=== PATIENT | male | born 1960 | race Caucasian/White ===

== ENCOUNTER 2017-01-14 22:03 | Emergency (ER) | payer OTHER ==
[~2017-01-14] VITALS: Ht 172.7 cm; Wt 82.6 kg
--- NOTE | 2017-01-14 22:56 | ED ANKLE/FOOT INJURY COMPLAINT ---
History of Present Illness General Chief Complaint: Foot or Ankle Injury Stated Complaint: PT HAS PAIN IN THE LT ANKLE Source: patient, family Exam Limitations: no limitations Vital Signs & Intake/Output Vital Signs & Intake/Output Vital Signs Date Time Temp Pulse Resp B/P B/P Pulse O2 O2 Flow FiO2 Mean Ox Delivery Rate 01/14 2210 98.1 70 18 136/79 97 Room Air Allergies Coded Allergies: No Known Allergies (01/14/17) Reconcile Medications Diclofenac Sodium 75 MG TABLET.DR 1 TAB PO BID PRN pain/inflammation Tramadol HCl 50 MG TABLET 1-2 TAB PO Q6 PRN pain may cause drowsiness Triage Note: PT REPORTS LEFT ANKLE PAIN THAT BEGAN SUDDENTLY WHILE AT [employer]ORE. DENIED RECENT TRAUMA HOWEVER DID REPORT TO HAVE FRACTURED THIS ANKLE 40 YEARS AGO. Triage Nurses Notes Reviewed? yes HPI: Patient is a 56-year-old male presents complaining of sudden onset of left ankle pain. Patient was at the grocery store when he had sudden onset of pain. Pain is a sharp and at times dull pain is currently severe. Pain worsens with attempting weightbearing. Patient reports that there is no specific injury, twisting, fall preceding the pain. Mild swelling at this time, swelling was more pronounced prior to arrival. Patient has had numerous tick bites previously. Patient denies rash, fevers, numbness, other joint pain. Past History Travel History Traveled to [place] past 21 day No Medical History Any Pertinent Medical History? see below for history Cardiovascular: hypertension Tetanus Vaccine: Surgical History Surgical History: multiple eye surgeries Psychosocial History What is your primary language Togolese Tobacco Use: Never used Family History Hx Contributory? No Review of Systems Review of Systems Constitutional: Denies: chills, fever. Respiratory: Denies: cough, short of breath. Cardiovascular: Denies: chest pain. GI: Denies: abdominal pain. Musculoskeletal: Reports: see HPI. Skin: Denies: rash. Neurological/Psychological: Denies: numbness, paresthesia. Hematologic/Endocrine: Denies: bruising, bleeding. Immunologic/Allergic: Denies: splenectomy. Physical Exam Physical Exam General Appearance: well developed/nourished, alert, awake Head: atraumatic, normal appearance Eyes: Bilateral: normal appearance, PERRL, EOMI. Ears, Nose, Throat: normal pharynx, normal ENT inspection, hearing grossly normal Neck: normal inspection, supple, full range of motion Cardiovascular/Respiratory: no respiratory distress Back: normal inspection, normal range of motion Leg/Knee/Thigh Left: normal range of motion, normal inspection Ankle Left: tenderness with mild swelling anterior medial malleolus. Full range of motion of left ankle and foot. No erythema or skin lesions Foot Left: normal inspection, normal range of motion Neuro/Vascular: normal motor function, normal sensation Tendon: normal tendon function Progress Differential Diagnosis: septic arthritis, gout, fracture, sprain, contusion, tendonitis Plan of Care: Orders Procedure Date/time Status Durable Medical Equipment 01/15 2348 Active URIC ACID 01/14 2307 Complete LYME TITRE 01/14 2307 Active CBC WITHOUT DIFFERENTIAL 01/14 2307 Complete BASIC METABOLIC PANEL 01/14 2307 Complete Laboratory Tests 01/14/172309: Anion Gap 10, Estimated GFR > 60, BUN/Creatinine Ratio 23.8, Glucose 124 H, Uric Acid 6.4, Calcium 9.0, CBC w Diff NO MAN DIFF REQ, RBC 4.88, MCV 90.6, MCH 30.8, RDW 13.1, MPV 9.5, Gran % 59.5, Lymphocytes % 25.6, Monocytes % 9.8 H, Eosinophils % 4.1, Basophils % 1.0, Absolute Granulocytes 5.8, Absolute Lymphocytes 2.5, Absolute Monocytes 1.0 H, Absolute Eosinophils 0.4, Absolute Basophils 0.1, PUBS MCHC 34.0, Lyme Disease Antibody Pending 2344: Results of labs and x-ray discussed with patient. No apparent signs of septic joint or infectious etiology. Lyme titer is pending. Will treat conservatively and have patient follow-up with his primary care provider or with orthopedics if no improvement. (LORETA PEACE,STEPHANI) Diagnostic Imaging: Viewed by Me: Radiology Read. Discussed w/RAD: Radiology Read. Radiology Impression: PATIENT: DOE LORENZO PRESENT AGE: 56 PATIENT ACCOUNT NO: [id number] : 58 LOCATION: [facility] ORDERING PHYSICIAN: LANRE WILL DO (TBS) SERVICE DATE: 01/14/17 EXAM TYPE: RAD - XRY-TWO VIEW LEFT ANKLE EXAMINATION: XR ANKLE, LEFT CLINICAL INFORMATION: Pain and swelling COMPARISON: None TECHNIQUE: Two views of the left ankle. FINDINGS: No fracture or dislocation. The ankle mortise appears congruent. The soft tissues are unremarkable. No ankle joint effusion. IMPRESSION: Unremarkable left ankle radiographs. DICTATED BY: COMFORT RICHEY MD DATE/TIME DICTATED:01/14/172250 STAFF NURSE:LEIGHANN DATE/TIME TRANSCRIBED:01/14/172250 CONFIDENTIAL, DO NOT COPY WITHOUT APPROPRIATE AUTHORIZATION. <Electronically signed in Other Vendor System> SIGNED BY: COMFORT RICHEY MD 01/14/172255 Departure Departure Time of Disposition: 2349 Disposition: HOME OR SELF CARE Condition: Stable Clinical Impression Primary Impression: Tendonitis of ankle, left Referrals: JULIUS FATIMA,JOSE Graham (PCP/Family) ROSELIA ARNOLD,GABINO Hoffmann. Additional Instructions: Follow-up with your primary care provider or with the orthopedist listed in your discharge paperwork if no improvement within 2-3 days. Rest, elevate and wear air splint for support. Return to the emergency department if fevers, redness to the joint, pain uncontrolled, or worsening of symptoms. Departure Forms: Customer Survey General Discharge Information Prescriptions: Current Visit Scripts Diclofenac Sodium 1 TAB PO BID PRN pain/inflammation #10 TAB Tramadol HCl 1-2 TAB PO Q6 PRN pain #15 TAB may cause drowsiness
[2017-01-14 23:22] LABS: ABSOLUTE BASOPHIL COUNT 0.1 /CUMM (0.0-0.2); ABSOLUTE EOSINOPHIL COUNT 0.4 /CUMM (0.0-0.7); ABSOLUTE GRANULOCYTE CT 5.8 /CUMM (1.4-6.5); ABSOLUTE LYMPH COUNT 2.5 /CUMM (1.2-3.4); EOSINOPHIL % 4.1 % (0-5); GRANULOCYTE % 59.5 % (42.2-75.2); HEMATOCRIT 44.2 % (42-52); MEAN CORPUSCULAR HGB 30.8 PG (27.0-31.0); MEAN CORPUSCULAR VOLUME 90.6 FL (80.0-94.0); MEAN PLATELET VOLUME 9.5 FL (7.4-10.4); PLATELET COUNT 202 /CUMM (130-400); RBC DISTRIBUTION WIDTH 13.1 % (11.5-14.5); RED BLOOD CELL CT 4.88 /CUMM (4.70-6.10); WHITE BLOOD CELL COUNT 9.8 /CUMM (4.8-10.8)
[2017-01-14] MEDS ORDERED: TRAMADOL HCL50 M1 PO (23:52)
[2017-01-14] MEDS ORDERED: DICLOFENAC SODI75 M2 PO (23:52)
[2017-01-14 23:59] VITALS: BP 144/80
== END 2017-01-15 ==
LOC: ERH 22:03
PROVIDERS: Physician Assistant
DX: M77.9 Enthesopathy, unspecified (principal)
CPT/HCPCS: 86618; 73600-LT